=== PATIENT | male | born 1985 | race Caucasian/White ===

== ENCOUNTER 2020-03-20 15:34 | Emergency (ER) | payer SELFPAY ==
[~2020-03-20] VITALS: Ht 170.2 cm; Wt 72.6 kg
[2020-03-20 15:36] VITALS: BP 138/89
--- NOTE | 2020-03-20 15:55 | NUR ---
34 YEAR OLD MALE INITIAL COMPLAINTS OF SHORTNESS OF BREATHE, BUT STATES HE NO LONGER HAS SHORTNESS OF BREATHE. PT STATES THAT HIS WHOLE BODY FEELS NUMB, AND THAT HE HAS A SMALL PAPERCUT ON HIS RIGHT HAND. PT STATES HE THINKS HE IS NERVOUS AND THAT HE DID CRYSTAL METH LAST NIGHT. PT ALERT AND AWAKE, BREAHTING EVEN AND UNLABORED, SKIN WARM AND DRY. BED IN LOWEST POSITION, LOCKED, BED RAIL UPX1. PT PLACED ON MONITOR, VS STABLE. PMH - DENIES ALLERGIES- NKA
--- NOTE | 2020-03-20 16:50 | NUR ---
Patient discharged with v/s stable. Written and verbal after care instructions about anxiety and panic attacks, and methamphetamine abuse given and explained. Patient verbalized understanding. Ambulatory with steady gait. All questions addressed prior to discharge. Advised to follow up with PMD.
[2020-03-20 16:53] VITALS: BP 115/68
== END 2020-03-20 16:50 | disposition home or self-care (01) ==
LOC: MED 15:34
DX: F15.10 Other stimulant abuse, uncomplicated (principal); F41.9 Anxiety disorder, unspecified; F17.210 Nicotine dependence, cigarettes, uncomplicated
CPT/HCPCS: 99282; Q0163